=== PATIENT | male | born 1945 | race Caucasian/White ===

== ENCOUNTER → 2016-12-14 | Outpatient (REF) | payer MEDICARE, OTHER ==
[2016-12-14 13:21] LABS: ALBUMIN 3.9 GM/DL (3.2-5.2); ALBUMIN/GLOBULIN RATIO 1.08 (1.00-1.93); ALKALINE PHOSPHATASE 60 U/L (45-117); ALT/SGPT 23 U/L (12-78); ANION GAP 7 MEQ/L (8-16); AST/SGOT 19 U/L (15-37); BILIRUBIN,TOTAL 0.3 MG/DL (0.2-1.0); BLOOD UREA NITROGEN 24 MG/DL (7-18); CALCIUM LEVEL 9.3 MG/DL (8.8-10.2); CARBON DIOXIDE LEVEL 30 MEQ/L (21-32); CHLORIDE LEVEL 105 MEQ/L (98-107); CHOLESTEROL LEVEL 245 MG/DL (<200); CREATININE FOR GFR 1.11 MG/DL (0.70-1.30); FERRITIN 254 NG/ML (26-388); GLOMERULAR FILTRATION RATE > 60.0 (>42); GLUCOSE, FASTING 99 MG/DL (83-110); PERCENT SATURATION 25.1 % (19.7-37.4); POTASSIUM SERUM 4.9 MEQ/L (3.5-5.1); SODIUM LEVEL 142 MEQ/L (136-145); TOTAL IRON BINDING CAPACITY 331 UG/DL (250-450); TOTAL PROTEIN 7.5 GM/DL (6.4-8.2); TRIGLYCERIDES LEVEL 104 MG/DL (<150)
== END ==
LOC: M SFHCADAM 10:01
PROVIDERS: ATTEND Physician Assistant
DX: I10 Essential (primary) hypertension (principal); D64.9 Anemia, unspecified; D69.6 Thrombocytopenia, unspecified; E78.4 Other hyperlipidemia; C61 Malignant neoplasm of prostate
CPT/HCPCS: 80053; 80061; 82728; 83550; 84153; G0463

== ENCOUNTER → 2016-12-14 | Outpatient (REF) | payer MEDICARE, OTHER | LOC: M LABDRWAD 13:05 | PROVIDERS: ATTEND Urology | DX: I10 Essential (primary) hypertension (principal); D64.9 Anemia, unspecified; E78.4 Other hyperlipidemia; D69.6 Thrombocytopenia, unspecified; C61 Malignant neoplasm of prostate ==

== ENCOUNTER → 2017-03-14 | Outpatient (REF) | payer MEDICARE, OTHER ==
[2017-03-14 12:40] LABS: ADD MANUAL DIFFER YES; DIFF SLIDE NUMBER 193; MEAN CORPUSCULAR HEMOGLOBIN 30.1 pg (27.0-33.0); MEAN CORPUSCULAR HGB CONC 32.6 g/dl (32.0-36.5); MEAN CORPUSCULAR VOLUME 92.1 fl (80.0-96.0); RED CELL DISTRIBUTION WIDTH 18.7 % (11.5-14.5); WHITE BLOOD COUNT 2.3 K/mm3 (4.0-10.0)
[2017-03-14 13:01] LABS: PLATELET COUNT, AUTOMATED 34 k/mm3 (150-450)
[2017-03-14 13:08] LABS: ALBUMIN 3.9 GM/DL (3.2-5.2); ALBUMIN/GLOBULIN RATIO 1.03 (1.00-1.93); ALKALINE PHOSPHATASE 65 U/L (45-117); ALT/SGPT 17 U/L (12-78); ANION GAP 5 MEQ/L (8-16); AST/SGOT 11 U/L (15-37); BILIRUBIN,TOTAL 0.5 MG/DL (0.2-1.0); BLOOD UREA NITROGEN 23 MG/DL (7-18); CALCIUM LEVEL 9.7 MG/DL (8.8-10.2); CARBON DIOXIDE LEVEL 29 MEQ/L (21-32); CHLORIDE LEVEL 100 MEQ/L (98-107); FREE T4 1.08 NG/DL (0.76-1.46); GLOMERULAR FILTRATION RATE > 60.0 (>42); GLUCOSE, FASTING 111 MG/DL (83-110); POTASSIUM SERUM 4.6 MEQ/L (3.5-5.1); SODIUM LEVEL 134 MEQ/L (136-145); TOTAL PROTEIN 7.7 GM/DL (6.4-8.2)
== END ==
LOC: M SFHCADAM 10:18
PROVIDERS: ATTEND Physician Assistant
DX: C92.00 Acute myeloblastic leukemia, not having achieved remission (principal); I10 Essential (primary) hypertension; R63.4 Abnormal weight loss
CPT/HCPCS: 80053; 84439; 84443; 85025; G0463

== ENCOUNTER → 2017-06-04 | Outpatient (REF) | payer MEDICARE, OTHER ==
[2017-06-04 13:29] LABS: ALBUMIN 3.7 GM/DL (3.2-5.2); ALKALINE PHOSPHATASE 59 U/L (45-117); ALT/SGPT 20 U/L (12-78); ANION GAP 9 MEQ/L (8-16); AST/SGOT 14 U/L (15-37); BILIRUBIN,TOTAL 0.3 MG/DL (0.2-1.0); BLOOD UREA NITROGEN 21 MG/DL (7-18); CALCIUM LEVEL 9.8 MG/DL (8.8-10.2); CARBON DIOXIDE LEVEL 27 MEQ/L (21-32); CHLORIDE LEVEL 107 MEQ/L (98-107); CREATININE FOR GFR 0.81 MG/DL (0.70-1.30); GLOMERULAR FILTRATION RATE > 60.0 (>42); GLUCOSE, FASTING 96 MG/DL (83-110); POTASSIUM SERUM 4.7 MEQ/L (3.5-5.1); SODIUM LEVEL 143 MEQ/L (136-145); TOTAL PROTEIN 7.4 GM/DL (6.4-8.2)
[2017-06-04 13:47] LABS: ADD MANUAL DIFFER YES; DIFF SLIDE NUMBER 217; MEAN CORPUSCULAR HEMOGLOBIN 30.3 pg (27.0-33.0); MEAN CORPUSCULAR HGB CONC 32.7 g/dl (32.0-36.5); MEAN CORPUSCULAR VOLUME 92.6 fl (80.0-96.0); RED CELL DISTRIBUTION WIDTH 20.3 % (11.5-14.5); WHITE BLOOD COUNT 1.4 K/mm3 (4.0-10.0)
[2017-06-04 15:20] LABS: PLATELET COUNT, AUTOMATED 22 k/mm3 (150-450)
== END ==
LOC: M SFHCADAM 09:31
PROVIDERS: ATTEND Physician Assistant
DX: C92.00 Acute myeloblastic leukemia, not having achieved remission (principal); C61 Malignant neoplasm of prostate; D61.818 Other pancytopenia
CPT/HCPCS: 80053; 85025; G0103; G0463

== ENCOUNTER → 2017-09-06 | Outpatient (REF) | payer MEDICARE, OTHER | LOC: M SFHCADAM 12:14 | PROVIDERS: ATTEND Physician Assistant Medical | DX: J02.9 Acute pharyngitis, unspecified (principal) ==

== ENCOUNTER → 2017-09-10 | Outpatient (REF) | payer MEDICARE, OTHER ==
[2017-09-10 20:01] LABS: MEAN CORPUSCULAR HEMOGLOBIN 29.7 pg (27.0-33.0); MEAN CORPUSCULAR HGB CONC 31.6 g/dl (32.0-36.5); MEAN CORPUSCULAR VOLUME 94.1 fl (80.0-96.0); RED CELL DISTRIBUTION WIDTH 21.8 % (11.5-14.5); WHITE BLOOD COUNT 2.6 10^3/uL (4.0-10.0)
[2017-09-10 20:27] LABS: PLATELET COUNT, AUTOMATED 31 10^3/uL (150-450); POS COUNT POS FLAG; POSITIVE DIFF POS FLAG; POSITIVE MORPH POS FLAG
[2017-09-10 20:28] LABS: ADD MANUAL DIFFER YES; DIFF SLIDE NUMBER 195
[2017-09-10 20:29] LABS: IMMATURE PLATELET FRACTION % 11.3 % (0.0-10.9)
[2017-09-10 20:31] LABS: ALBUMIN 3.8 GM/DL (3.2-5.2); ALKALINE PHOSPHATASE 68 U/L (45-117); ALT/SGPT 15 U/L (12-78); ANION GAP 7 MEQ/L (8-16); AST/SGOT 11 U/L (7-37); BILIRUBIN,TOTAL 0.4 MG/DL (0.2-1.0); BLOOD UREA NITROGEN 19 MG/DL (7-18); CALCIUM LEVEL 9.5 MG/DL (8.8-10.2); CARBON DIOXIDE LEVEL 27 MEQ/L (21-32); CHLORIDE LEVEL 107 MEQ/L (98-107); GLOMERULAR FILTRATION RATE > 60.0 (>42); GLUCOSE, FASTING 109 MG/DL (83-110); POTASSIUM SERUM 4.5 MEQ/L (3.5-5.1); SODIUM LEVEL 141 MEQ/L (136-145)
[2017-09-10 20:35] LABS: ANISOCYTOSIS 2+
[2017-09-10 20:38] LABS: ACANTHOCYTES 1+; SCHISTOCYTES 1+
== END ==
LOC: M SFHCADAM 11:30
PROVIDERS: ATTEND Physician Assistant
DX: D61.818 Other pancytopenia (principal)

== ENCOUNTER → 2018-01-02 | Outpatient (REF) | payer MEDICARE, OTHER ==
[2018-01-02 20:19] LABS: HEMATOCRIT 26.1 % (42.0-52.0); HEMOGLOBIN 8.1 g/dl (13.5-17.5); MEAN CORPUSCULAR HEMOGLOBIN 30.5 pg (27.0-33.0); MEAN CORPUSCULAR VOLUME 98.1 fl (80.0-96.0); RED BLOOD COUNT 2.66 10^6/uL (4.30-6.10); RED CELL DISTRIBUTION WIDTH 24.3 % (11.5-14.5); WHITE BLOOD COUNT 6.2 10^3/uL (4.0-10.0)
[2018-01-02 20:29] LABS: ALBUMIN 3.9 GM/DL (3.2-5.2); ALBUMIN/GLOBULIN RATIO 0.91 (1.00-1.93); ALKALINE PHOSPHATASE 79 U/L (45-117); ALT/SGPT 13 U/L (12-78); ANION GAP 7 MEQ/L (8-16); AST/SGOT 15 U/L (7-37); BILIRUBIN,TOTAL 0.3 MG/DL (0.2-1.0); BLOOD UREA NITROGEN 19 MG/DL (7-18); CALCIUM LEVEL 9.8 MG/DL (8.8-10.2); CARBON DIOXIDE LEVEL 28 MEQ/L (21-32); CHLORIDE LEVEL 107 MEQ/L (98-107); CREATININE FOR GFR 0.92 MG/DL (0.70-1.30); FERRITIN 422 NG/ML (26-388); GLOMERULAR FILTRATION RATE > 60.0 (>42); GLUCOSE, FASTING 91 MG/DL (70-100); IRON (FE) 67 UG/DL (65-175); PERCENT SATURATION 21.4 % (19.7-50.0); POTASSIUM SERUM 4.8 MEQ/L (3.5-5.1); SODIUM LEVEL 142 MEQ/L (136-145); TOTAL IRON BINDING CAPACITY 313 UG/DL (250-450); TOTAL PROTEIN 8.2 GM/DL (6.4-8.2)
[2018-01-02 20:35] LABS: FOLATE 16.5 NG/ML; VITAMIN B12 LEVEL 423 PG/ML
[2018-01-02 21:12] LABS: PLATELET COUNT, AUTOMATED 95 10^3/uL (150-450); POSITIVE MORPH POS FLAG
[2018-01-02 21:13] LABS: ADD MANUAL DIFFER YES; DIFF SLIDE NUMBER 241; IMMATURE PLATELET FRACTION % 10.8 % (0.0-10.9)
[2018-01-02 21:22] LABS: LYMPHOCYTES 55 % (16-52); MONOCYTES 11 % (0-8); NEUTROPHILS 20 % (35-75)
[2018-01-02 21:26] LABS: ANISOCYTOSIS 2+; BLAST CELLS 14 % (0-0); PLATELET ESTIMATE DECREASED (NORMAL); POLYCHROMASIA 1+
[2018-01-02 21:31] LABS: POIKILOCYTOSIS 1+
== END ==
LOC: M SFHCADAM 12:49
DX: C92.00 Acute myeloblastic leukemia, not having achieved remission (principal); D61.818 Other pancytopenia
CPT/HCPCS: 82746

== ENCOUNTER → 2018-02-19 | Outpatient (CLI) | payer MEDICARE, OTHER | LOC: M ADAMS 11:45 | DX: R91.8 Other nonspecific abnormal finding of lung field (principal); R05 Cough | CPT/HCPCS: 71046 ==